=== PATIENT | female | born 1940 | race Caucasian/White ===

== ENCOUNTER 2019-08-05 07:00 | Day surgery (SDC) | payer MEDICARE, OTHER ==
[2019-08-05] VITALS (12 sets, daily range): BP systolic 132–162; BP diastolic 52–83
[~2019-08-05] VITALS: Ht 162.6 cm; Wt 54.6 kg
[~2019-08-05 07:00] MED LIST: ASPI-845 PO; CHOL200016 PO; FLEC100T2 PO; LORA1TAB PO; OMEG300C3 PO; VITA1CAP PO
[2019-08-05] MEDS ORDERED: HYDROcodone/acetaminophen 10/325mg tab PO PRN (07:40)
[2019-08-05] MEDS ORDERED: normal saline 1000ml 1,000 ML IV PRN (07:40)
[2019-08-05] MEDS ORDERED: ACET-1025 PO (07:43)
[2019-08-05] MEDS ORDERED: NAPR220T67 PO (07:43)
[2019-08-05] MEDS ORDERED: LIPA1CAP18 PO (07:43)
[2019-08-05 08:11] LABS: BASOPHILS % (AUTO) 1.1 % (0-1); EOSINOPHILS # (AUTO) 0.2 X10'3 (0-0.9); EOSINOPHILS % (AUTO) 4.8 % (0-6); HEMATOCRIT 34.3 % (35.0-45.0); HEMOGLOBIN 11.8 g/dl (12.0-16.0); LYMPHOCYTES % (AUTO) 28.1 % (21-51); MEAN CORPUSCULAR HEMOGLOBIN 32.8 PG (27.0-31.0); MEAN CORPUSCULAR HGB CONC 34.3 g/dL (33.0-36.5); MEAN CORPUSCULAR VOLUME 95.8 FL (78-98); MONOCYTES # (AUTO) 0.4 X10'3 (0-0.9); MONOCYTES % (AUTO) 11.2 % (2-12); NEUTROPHILS # (AUTO) 1.9 X10'3 (1.8-7.7); NEUTROPHILS % (AUTO) 54.8 % (42-75); PLATELET COUNT 205 X10'3 (140-440); RED BLOOD COUNT 3.58 X10'6 (4.20-5.60); RED CELL DISTRIBUTION WIDTH 14.3 % (11.5-14.5); WHITE BLOOD COUNT 3.4 X10'3 (4.5-11.0)
[2019-08-05 08:21] LABS: ALBUMIN 3.9 G/DL (3.4-5.0); ANION GAP 6 (8-16); BLOOD UREA NITROGEN 13 MG/DL (7-18); BUN/CREATININE RATIO 19.1 (6.6-38.0); CHLORIDE 107 MMOL/L (99-107); CREATININE 0.68 MG/DL (0.40-0.90); GLUCOSE 115 MG/DL (70-104); POTASSIUM 3.8 MMOL/L (3.5-5.1); SODIUM 142 MMOL/L (135-145); TOTAL CARBON DIOXIDE 29.5 MMOL/L (24-32); eGFR 83 ML/MIN
[2019-08-05] MEDS ORDERED: fentaNYL/PF 50MCG/1 ML 2ML syringe ONE ×2 (09:44→10:04)
[2019-08-05] MEDS ORDERED: midazolam 2 mg/2 ml injection ONE ×2 (09:44→10:04)
== END 2019-08-05 11:25 | disposition home or self-care (01) ==
LOC: SSTAY O 07:00
PROVIDERS: ATTEND Radiology Vascular & Interventional Radiology
DX: K86.89 Other specified diseases of pancreas (principal); Z79.899 Other long term (current) drug therapy; Z88.2 Allergy status to sulfonamides; Z91.041 Radiographic dye allergy status
CPT/HCPCS: 10009; 36415; 80048; 85025; 85610; 99152; 99153; J2250; J3010; 49180; 77012; 88173; 88305; 88342; 88360